=== PATIENT | male | born 1990 | race Caucasian/White ===

== ENCOUNTER 2021-06-08 03:08 | Emergency (ER) | payer OTHER, BC ==
[~2021-06-08] VITALS: Ht 177.8 cm; Wt 68.2 kg
[~2021-06-08 03:08] MED LIST: METHYLPHENIDATE
[2021-06-08] MEDS ORDERED: ILOTYCIN5 MG/GM OP (04:48)
[2021-06-08 05:10] VITALS: BP 131/78; PULSE 80; TEMP 98.4
== END 2021-06-08 05:10 | disposition home or self-care (01) ==
LOC: COL.ER 03:08
DX: T15.02XA Foreign body in cornea, left eye, initial encounter (principal)